=== PATIENT | female | born 2005 | race Caucasian/White ===

== ENCOUNTER 2025-04-20 20:16 | Emergency (ER) | payer OTHER, SELFPAY ==
--- OUTSIDE RECORDS SUMMARY | 2025-04-20 20:24 | XMS_ITS | Clinical Summary ---
Author Organization [facility] Address [address] [place] [address] Phone [email or web address] Care Team Providers Care City Secretary Name Role Phone Unavailable Primary Care Provider Unavailabl e Allergies No known active allergies Medications No known medications Active Problems No known active problems Social History Tobacco Use Types Packs/Day Years Used Date Smoking Tobacco: Never Smokeless Tobacco: Never Tobacco Cessation:Counseling Given: Not Answered Comments Unknown Sex and Gender Information Value Date Recorded Sex Assigned at Not on file Legal Sex Female 10:34 AM CDT Gender Identity Not on file Sexual Orientation Not on file Last Filed Vital Signs Vital Sign Reading Time Taken Comments Blood Pressure 132/78 09/10/2024 12:42 PM EDT Pulse 72 09/10/2024 12:42 PM EDT Temperature 36.9 C (98.5 F) 09/10/2024 12:42 PM EDT Respiratory Rate - - Oxygen Saturation 98% 09/10/2024 12:42 PM EDT Inhaled Oxygen Concentration - - Weight 63.6 kg (140 lb 3.2 oz) 09/10/2024 12:42 PM EDT Height 162.6 cm (5' 4 ) 09/10/2024 12:42 PM EDT Body Mass Index 24.07 09/10/2024 12:42 PM EDT Plan of Treatment Health Maintenance Due Date Last Done Comments Dental Cleaning/Exam 2004 HIV Screening 2004 Hepatitis C Screening 2004 HPV Immunization (1 - 3-dose series) 2019 Men B Immunization (1 of 2 - Standard) 2020 Hep B Infection Screening - Triple Screen 2022 Hepatitis B Immunization (1 of 3 - 19+ 3-dose series) 2023 Tetanus Diphtheria and Pertu ssis Immunization (1 - Tdap) 2023 Covid-19 Immunization (1 - 2 025 season) 2024 Influenza Immunization (#1) 2024 Annual Preventive Exam 09/10/2025 09/10/2024 HIB Immunization Aged Out No longer e ligible based on patient's age to complete this topic Hepatitis A Immunization Aged Out No longer eligible based on patient's age to complete this topic Meningococcal Immunization Aged Out N o longer eligible based on patient's age to complete this topic Pneumococcal Immunization Aged Out No longer eligible based on patient's age to complete this topic Polio Immunization Aged Out No longer eligible based on patient's age to complete this topic Varicella Immunization Aged Out No lo nger eligible based on patient's age to complete this topic
--- OUTSIDE RECORDS SUMMARY | 2025-04-20 20:24 | XMS_ITS | Data Portability ---
Author Organization [facility] - Liam campbell MD, Main Office Address [address] [place] [address], [address] [id number] Assessment No assessment recorded. Plan of Treatment Reminders Order Date Submit Date Provider Last Modified By Organization Details Last Modified Time Details Appointments None record ed. Lab None record ed. Referral None record ed. Procedures None record ed. Surgeries None record ed. Imaging None record ed. Medication Orders None record ed. Patient TargetsNo targets recorded. Patient Instructions Encounter Date Encounter Id Patient Instructions Last Modified By Organization Details Last Modified Time 12/11/2024 [id number] Numbness and Tingling: Care Instructions [email or web address] Not available 12/11/2024 14:36:43 Reason for Referral None Reported. Results Created Date Observation Date Name Description Value Unit Range Abnormal Flag Note LastModifiedBy Organization Detail LastModifiedTime 12/12/1912/11/2024 elect romyo gram + nerve condu ction study No observ ation record ed. BARCODE Not Available 2024 14:41:08 Result Notes None recorded. Problems No Known Problems Procedures Surgical History Date Name Laterality Status Provider Name and Address Organization Details Recorded Time 12/11/2024 NCV/EMG completed Krish Green MD 12/11/2024 14:36:25 Imaging Results None recorded. Procedure Notes None recorded. Medical Equipment None Reported. Allergies No known drug allergies Medications Name Sig Start Date Stop Date Status Note LastModified by Organization Details LastModified Time hydrocodone 5 mg-acetaminophe n 325 mg tablet TAKE 1 TABLET BY MOUTH EVERY 6 HOURS NEEDED FOR ACUTE PAIN FOR UP TO 3 DAYS active Not Available Not Available No t Available ondansetron HCl 4 mg tablet TAKE 1 TABLET BY MOUTH EVERY 6 HOURS NEEDED FOR NAUSEA FOR UP TO 30 DAYS active Not Available Not Available No t Available cephalexin 500 mg capsule TAKE 1 CAPSULE BY MOUTH 2 TIMES DAILY FOR 3 DAYS. active Not Available Not Available No t Available nitrofurantoin monohydrate/mac rocrystals 100 mg capsule TAKE 1 CAPSULE BY MOUTH EVERY 12 HOURS FOR 5 DAYS active Not Available Not Available No t Available Vitals None Recorded Social History None recorded. Functional Status None recorded. Mental Status None recorded. Family History Nothing Reported. Medical History No medical history recorded. Gynecological HistoryNo gynecological history recorded. Obstetrics History GPAL:G 0 P 0 0 0 0 Past Encounters Encounter ID Performer Location Encounter Start Date Encounter Closed Date Diagnosis/Indication Diagnosis SNOMED-CT Code Diagnosis ICD10 Code Diagnosis IMO Codes Diagnosis Note [id number] Liam Green MD Main Office [address] [facility] [address] [place] [phone] 12/11/2024 13:57:22 12/11/2024 14:37:26 Paresthesia 43094469 R20.2 25504 Health Concerns Section Related Observation LastModified by Organization Detai ls LastModified Time None Recorded Concern Status LastModified by Organization Details LastModified Time None Recorded Advance Directives Directive None Recorded Payers Insurance Date Sequence Insurance Name Policy Number Policy Hendrickson Covered Member ID Hendrickson Member ID Guarantor Name 12/03/2024 SLIDING FEE SCHEDULE - DISCOUNT Meenu Gunderson OBG[facility] Episode No OBEpisode recorded.
--- OUTSIDE RECORDS SUMMARY | 2025-04-20 20:24 | XMS_ITS ---
Author Organization Unknown ENCOUNTERS Encounter Performer Location Date Diagnosis Diagnosis Status Pre Admit [facility] [address] [place] [address] [id number] Emergency [facility] [address] [place] [address] [id number] *Note: Encounters from your own facility or health system may be excluded. Allergies, Adverse Reactions, Alerts Allergen Type Severity Identification Date Medications Name Date Quantity Days Supplied GPI Number
--- OUTSIDE RECORDS SUMMARY | 2025-04-20 20:24 | XMS_ITS | Clinical Summary ---
Author Organization [facility] Address [address] [place] [address] Phone Care Team Providers Care Fiberglass Quality Technician Name Role Phone Unavailable Primary Care Provider Unavailabl e Allergies No known active allergies Medications No known medications Surgical History Surgery Date Site/Laterality Comments TONSILLECTOMY Social History Tobacco Use Types Packs/Day Years Used Date Smoking Tobacco: Never Smokeless Tobacco: Never Tobacco Cessation:Counseling Given: Not Answered Comments No Sex and Gender Information Value Date Recorded Sex Assigned at Not on file Legal Sex Female 12:08 PM EDT Gender Identity Not on file Sexual Orientation Not on file Last Filed Vital Signs Vital Sign Reading Time Taken Comments Blood Pressure 124/68 01/12/2024 12:17 PM EDT Pulse 96 01/12/2024 12:17 PM EDT Temperature 37.2 C (99 F) 01/12/2024 12:17 PM EDT Respiratory Rate 19 01/12/2024 12:17 PM EDT Oxygen Saturation 99% 01/12/2024 12:17 PM EDT Inhaled Oxygen Concentration - - Weight 68 kg (150 lb) 01/12/2024 12:17 PM EDT Height 162.6 cm (5' 4 ) 01/12/2024 12:17 PM EDT Body Mass Index 25.75 01/12/2024 12:17 PM EDT Plan of Treatment Health Maintenance Due Date Last Done Comments Annual Wellness Exam 2007 HPV (1 - 3-dose series) 2019 Meningococcal B Vaccine (1 o f 2 - Standard) 2020 DTaP/TDaP/Td (1 - Tdap) 2023 Hepatitis B Vaccine (1 of 3 - 19+ 3-dose series) 2023 COVID-19 Vaccine ( - 2024-2 6 season) 2024 Influenza Vaccine (#1) 2024 Pneumococcal Vaccine 0-49 Aged Out No longer eligible based on patient's age to complete this topic Insurance MEDICAID
[2025-04-20 20:26] VITALS: BP 102/65; PULSE 87; RESP 20; TEMP 36.8; O2SAT 98; BMI 24.1
[2025-04-20 20:31] LABS: Coronavirus 19, PCR Not Detected (NotDetected); Influenza A, PCR Not Detected (NotDetected); Influenza B, PCR Not Detected (NotDetected)
--- NOTE | 2025-04-20 21:23 | ED_ITS ---
<Statement entered by Mj Benavides MD - 04/20/25 21:59> Mj Benavides MD: I was consulted by the ZAHIDA, and we discussed the complexity of the problems being addressed. I approve the treatment and management plan for this patient's care in the emergency department, thus performing a substantive portion of the medical decision making. Discharge Plan Disposition Patient Disposition: Home, Self-Care Condition: Good Prescriptions Prescriptions: New amoxicillin 875 mg tablet 875 mg PO Q12H Qty: 20 0RF Referrals Follow up/Referrals: Provider,Referral, [Primary Care Provider, Medical] - See instructions Activity Restrictions/Add. Instructions Additional Instructions/Restrictions: You were seen for sinusitis. Please follow up if not improving. Clinical Impressions Clinical Impression: Sinusitis Instructions Patient Instructions: DI for Sinusitis Print Language Print Language: [place] Discharge ED Provider: Mj Benavides General Adult HPI General Chief complaint: Upper Respiratory Infection Stated complaint: flu like symptoms Time Seen by Provider: 04/20/25 20:18 Mode of Arrival: Ambulatory Source of Information: Patient Description of Symptoms (Recalled from ER Triage Doc. by RN): pt reports she has had sore throat congestion, and a cough since 04/14. pt reports her whole family is sick History of Present Illness HPI narrative: Patient presents with cough and congestion for 6 days. She reports subjective fever. She reports multiple family members with similar symptoms. Denies any . complaint: URI Onset (ago): day(s) Location: head Radiation: non-radiation Severity: moderate Consistency: constant Relieving factors: none Exacerbating factors: none Associated symptoms: fever/chills Treatments prior to arrival: none Related Data Previous Rx's ?Medication ?Instructions ?Recorded amoxicillin 875 mg tablet 875 mg PO Q12H #20 tabs 03/25 12/16 Allergies Allergy/AdvReac Type Severity Reaction Status Date / Time No Known Allergies Allergy Verified 01/11/25 08:31 [facility] Disclaimer: The information contained in this section may have been updated after the patient was seen, as this information can be updated by other users. Medical History History of depression History of anxiety Surgical History No significant past surgical history Social History (Updated 01/11/25 @ 09:08 by Martha Abbott APRN) Smoking Status: Never smoker alcohol intake: never current occupational status: employed Travel in the last 8 weeks?: Inside the [place] Have you lived/traveled outside [place] in past 30 days?: No Contact w/someone who lives/traveled outside US past 30 days?: No Exposure to someone with infectious disease in past 14 days?: No Do you have a fever (greater than 100.4 F or 38 C)?: No Have you tested positive for COVID-19?: No Exposed to someone with COVID-19 in past 14 days?: No Do you have a sore throat?: No Do you have a cough?: No Do you have any weakness?: No Do you have any diarrhea?: No Are you experiencing any unusual bleeding?: No Do you have any muscle aches/pain?: No Do you have any abdominal pain?: No Are you experiencing loss of taste or smell?: No ROS Obtained: Yes Systems reviewed as appropriate & no additional complaints except as documented Physical Exam General General appearance: alert and in no apparent distress Head Head exam: atraumatic and normocephalic Eye Eye exam: Present normal appearance and EOMI ENT ENT exam: Present normal exam, normal oropharynx, mucous membranes moist and TM's normal bilaterally Chest Chest inspection: Present symmetric chest wall rise Respiratory Respiratory exam: Present normal lung sounds bilaterally; Absent wheezes or stridor Cardiovascular Cardiovascular exam: Present regular rate and normal rhythm; Absent systolic murmur Extremities Exam Extremities exam: Present full ROM Neurological Exam Neurological exam: Present alert and oriented X3 Psychiatric Psychiatric exam: Present normal affect and normal mood Skin Skin exam: Present warm, dry and intact Medical Decision Making Medical Records Screening: Per USPSTF and CDC recommendations, given the prevalence of disease in our region, it is our hospital?s policy to screen for HIV and viral Hepatitis for all patients aged 18 and over and those with ongoing risk factors. Garcia Inquiry Pt receiving controlled substance: No Vital Signs: 04/20/25 20:26 Temperature 98.2 F Temperature Source Oral Pulse Rate [Right] 87 Respiratory Rate 20 Blood Pressure [Right Arm] 102/65 L Blood Pressure Mean [Right Arm] 77 02 Sat by Pulse Oximetry 98 Lab Data Lab Results 04/20/25 20:23: SARS-CoV-2 (PCR) Not detected, Influenza A Untype (PCR) Not detected, Influenza Type B (PCR) Not detected Orders (Tests/Meds): ORDERS Category Date Time Status Rapid PCR Covid and Flu A/B Stat Lab 04/20/25 20:23 Completed Medical Decision Narrative: In summary patient is a 19-year-old female who presents the emergency department for evaluation of congestion, cough. Patient is hemodynamically stable upon arrival, afebrile. Unremarkable physical exam. Differential diagnosis includes flu, COVID, sinusitis, pneumonia. Initial workup will be conducted with respiratory swab. Breath sounds are clear, chest x-ray not indicated. Started on amoxicillin for sinusitis given 7 days of symptoms. COVID flu are negative Critical Care Critical Care Time Critical Care Time: No
[2025-04-20 22:02] VITALS: O2SAT 99
[2025-04-20 22:05] VITALS: BP 110/67; PULSE 82; RESP 16; TEMP 36.8; O2SAT 99
== END 2025-04-20 22:06 | disposition home or self-care (01) ==
PROVIDERS: Emergency Provider Student in an Organized Health Care Education/Training Program
DX: J01.90 Acute sinusitis, unspecified (principal); R50.9 Fever, unspecified
CPT/HCPCS: 87636; 99283